=== PATIENT | female | born 1965 | race Caucasian/White ===

== ENCOUNTER 2018-04-17 10:40 | Emergency (ER) | payer OTHER ==
[~2018-04-17] VITALS: Ht 157.5 cm; Wt 70.5 kg
[~2018-04-17 10:40] MED LIST: ANTIVERT25 MG PO; ZOFRAN ODT4 MG PO; ZYRTEC10 M2 PO
[2018-04-17 11:18] LABS: HEMATOCRIT 39.4 % (36.0-46.0); HEMOGLOBIN 13.6 G/DL (11.9-15.5); MCH 32.8 PG (29.0-34.0); MCHC 34.5 G/DL (30.0-36.0); MCV 94.9 FL (83-99); PLATELET COUNT 273 K/uL (156-360); RBC DIS.WIDTH-CV 11.9 % (11.8-14.6); RBC DIS.WIDTH-SD 41.5 % (39-53); RED BLOOD COUNT 4.15 M/uL (3.80-5.20); WHITE BLOOD COUNT 8.7 K/uL (4.1-10.2)
[2018-04-17 11:26] LABS: CHLORIDE 106 mEq/L (99-109); POTASSIUM 4.6 mEq/L (3.7-5.4); SODIUM 139 mEq/L (136-147)
[2018-04-17 11:28] LABS: GLUCOSE 99 mg/dL (70-99)
[2018-04-17 11:32] LABS: CREATININE 0.9 mg/dL (0.6-1.3); GFR ESTIMATE (CALCULATED) > 59 mL/min/
[2018-04-17 11:33] LABS: UREA NITROGEN (BUN) 13 mg/dL (9-23)
[2018-04-17 11:38] LABS: TROP-I INTERPRETATION NEGATIVE; TROPONIN-I < 0.01 ng/mL (0.0-0.30)
[2018-04-17 13:41] LABS: TROP-I INTERPRETATION NEGATIVE; TROPONIN-I < 0.01 ng/mL (0.0-0.30)
[2018-04-17 13:53] VITALS: BP 124/88
== END 2018-04-17 13:55 | disposition home or self-care (01) ==
LOC: EME 10:40
PROVIDERS: Nurse Practitioner Family
DX: R07.9 Chest pain, unspecified (principal); Z86.79 Personal history of other diseases of the circulatory system; M79.602 Pain in left arm; R11.0 Nausea
CPT/HCPCS: 71046; 80048; 84484; 85027; 93005; 99281; 99284